=== PATIENT | female | born 1975 | race Caucasian/White ===

== ENCOUNTER 2017-05-21 04:56 | Emergency (ER) | payer BC ==
[~2017-05-21] VITALS: Ht 160 cm; Wt 68.1 kg
[2017-05-21 05:30] LABS: HEMATOCRIT 37.1 % (36.0-46.0); MCH 25.2 PG (29.0-34.0); MCHC 32.1 G/DL (30.0-36.0); MCV 78.4 FL (83-99); MEAN PLAT.VOLUME 11.4 uM^3 (9.5-12.4); PLATELET COUNT 268 K/uL (156-360); RBC DIS.WIDTH-CV 13.9 % (11.8-14.6); RBC DIS.WIDTH-SD 39.6 % (39-53); RED BLOOD COUNT 4.73 M/uL (3.80-5.20); WHITE BLOOD COUNT 11.6 K/uL (4.1-10.2)
[2017-05-21 05:36] LABS: CHLORIDE 105 mEq/L (99-109); POTASSIUM 3.6 mEq/L (3.7-5.4); SODIUM 140 mEq/L (136-147)
[2017-05-21 05:38] LABS: GLUCOSE 144 mg/dL (70-99)
[2017-05-21 05:39] LABS: ANION GAP 12 MEQ/L (2-14)
[2017-05-21 05:41] LABS: TROP-I INTERPRETATION NEGATIVE; TROPONIN-I < 0.01 ng/mL (0.0-0.30)
[2017-05-21 05:42] LABS: GFR ESTIMATE (CALCULATED) > 59 mL/min/
[2017-05-21 05:43] LABS: UREA NITROGEN (BUN) 16 mg/dL (9-23)
[2017-05-21 05:57] LABS: QUANTITATIVE HCG < 4.0 MIU/ML
[2017-05-21 08:33] LABS: TROP-I INTERPRETATION NEGATIVE; TROPONIN-I < 0.01 ng/mL (0.0-0.30)
[2017-05-21 09:14] VITALS: BP 127/81
== END 2017-05-21 09:19 | disposition home or self-care (01) ==
LOC: EME 04:56
PROVIDERS: Physician Assistant
DX: R07.9 Chest pain, unspecified (principal); I10 Essential (primary) hypertension
CPT/HCPCS: 71020; 80048; 84484; 84702; 85027; 93005; 99281; 99284